=== PATIENT | female | born 1995 | race American Indian/Alaskan Native ===

== ENCOUNTER 2016-12-24 17:02 | Emergency (ER) | payer MEDICAID ==
--- NOTE | 2016-12-24 20:19 | XRay Report ---
FINAL REPORT EXAM: XR ANKLE 3 RT HISTORY: fall/swollen right ankle,ro fx TECHNIQUE: Left ankle three views PRIORS: None. FINDINGS: There is acute traumatic vertical fracture through the medial malleolus with mild superior displacement medial fragment. Joint space does not appear widened. The distal fibula is intact there are no additional acute fractures identified. No radiopaque foreign bodies are seen. Joint spaces are within normal limits. IMPRESSION: Acute fracture the medial malleolus
[2016-12-24] MEDS ORDERED: NORCO 5/325 PO ONE (20:41)
--- NOTE | 2016-12-24 20:55 | Emergency Department Report ---
ED Lower Extremity HPI - General Chief Complaint: Extremity Injury, Lower Stated Complaint: RT ANKLE INJURY Time Seen by Provider: 12/24/16 20:03 Source: patient Mode of arrival: Wheelchair Limitations: No Limitations - History of Present Illness Initial Comments: 21-year-old female past medical history past medical history asthma presents with complaint of right ankle pain status post mechanical fall. Patient states she was chasing after her child to prevent him from running into the street, did not notice a short flight of steps outside her home and took a wide step and inverted her right ankle. Patient states this occurred this afternoon. This was witnessed by bystanders. Patient states she felt a pop in her ankle and could not walk after due to severe pain and swelling. Patient has visible swelling to distal right ankle denies any other injuries denies any loss of consciousness. States she did not hit her head. Patient tried to stand up afterwards but could not due to pain. On exam patient cannot take more than one step due to pain. no lacerations nor abrasions. MD Complaint: ankle injury -: This afternoon Injury: Ankle: Right (pain and swelling right ankle) Type of Injury: inversion Severity: moderate Severity scale (0 -10): 6 Improves With: immobilization Worsens With: weight bearing, movement, palpation Associated Symptoms: snap/pop sensation, swelling, unable to bear weight - Related Data Previous Rx's Medication Instructions Recorded Last Taken Type HYDROcodone/APAP 5-325 [[place] 1 each PO Q6HR PRN #14 tablet 12/24/16 Unknown Rx 5/325] Ibuprofen [Motrin] 800 mg PO Q8HR PRN #25 tablet 12/24/16 Unknown Rx Allergies Allergy/AdvReac Type Severity Reaction Status Date / Time peanut Allergy Anaphylaxis Verified 04/23/15 17:11 shellfish derived Allergy Anaphylaxis Verified 04/23/15 17:11 ED Review of Systems ROS: Stated complaint: RT ANKLE INJURY Other details as noted in HPI Constitutional: denies: chills, fever Eyes: denies: eye pain, eye discharge, vision change ENT: denies: ear pain, throat pain Respiratory: denies: cough, shortness of breath, wheezing Cardiovascular: denies: chest pain, palpitations Endocrine: no symptoms reported Gastrointestinal: denies: abdominal pain, nausea, diarrhea Genitourinary: denies: urgency, dysuria, discharge Musculoskeletal: denies: back pain, joint swelling, arthralgia Skin: denies: rash, lesions Neurological: denies: headache, weakness, paresthesias Psychiatric: denies: anxiety, depression Hematological/Lymphatic: denies: easy bleeding, easy bruising ED Past Medical Hx - Past Medical History Hx Asthma: Yes - Social History Smoking Status: Never Smoker Substance Use Type: None - Medications Home Medications: Home Medications Medication Instructions Recorded Confirmed Last Taken Type HYDROcodone/APAP 5-325 [[place] 1 each PO Q6HR PRN #14 tablet 12/24/16 Unknown Rx 5/325] Ibuprofen [Motrin] 800 mg PO Q8HR PRN #25 tablet 12/24/16 Unknown Rx ED Physical Exam - General Limitations: No Limitations General appearance: alert, in no apparent distress - Head Head exam: Present: atraumatic, normocephalic - Eye Eye exam: Present: normal appearance, PERRL, EOMI - ENT ENT exam: Present: mucous membranes moist - Neck Neck exam: Present: normal inspection - Respiratory Respiratory exam: Present: normal lung sounds bilaterally. Absent: respiratory distress - Cardiovascular Cardiovascular Exam: Present: regular rate, normal rhythm. Absent: systolic murmur, diastolic murmur, rubs, gallop - GI/Abdominal GI/Abdominal exam: Present: soft, normal bowel sounds - Extremities Exam Extremities exam: Present: normal inspection - Expanded Lower Extremity Exam Right Upper Leg exam: Present: normal inspection, full ROM Knee exam: Present: normal inspection, full ROM Lower Leg exam: Present: normal inspection, full ROM Ankle exam: Present: tenderness (there is tenderness worse at the right medial malleolus than lateral malleolus on exam.), swelling Foot/Toe exam: Present: tenderness (tenderness at the top of right ankle), swelling Neuro vascular tendon exam: Present: no vascular compromise (distal dorsalis pedis and posterior tibial pulses intact) Gait: Positive: antalgic 1 - Pain and swelling here 2 - Pain and swelling here - Back Exam Back exam: Present: normal inspection - Neurological Exam Neurological exam: Present: alert, oriented X3, CN II-XII intact, abnormal gait (antalgic gait) - Psychiatric Psychiatric exam: Present: normal affect, normal mood - Skin Skin exam: Present: warm, dry, intact, normal color. Absent: rash ED Course Vital Signs 12/24/16 17:45 Temperature 98.8 F Pulse Rate 80 Respiratory 18 Rate Blood Pressure 117/69 O2 Sat by Pulse 100 Oximetry ED Lower Extremity MDM - Medical Decision Making A/P: Right ankle pain and swelling, right ankle fracture 1-[place] when necessary, Motrin when necessary 2-patient placed in posterior splint. I discussed the case directly with Dr. Arrieta orthopedic on-call surgeon, patient to see Dr. Arrieta on Tuesday morning as per Dr. Arrieta and to be placed in a posterior ankle splint until he can evaluate her. No neurovascular compromise of foot on clinical exam, distal DT and Dp pulses intact. 3-crutches; nonweightbearing for now 4- RICE therapy Critical care attestation.: If time is entered above; I have spent that time in minutes in the direct care of this critically ill patient, excluding procedure time. ED Disposition Clinical Impression: Ankle fracture, right Qualifiers: Encounter type: initial encounter Fracture type: closed Qualified Code(s): S82.891A - Other fracture of right lower leg, initial encounter for closed fracture Disposition: - TO HOME OR SELFCARE Is pt being admited?: No Does the pt Need Aspirin: No Condition: Stable Instructions: Ankle Fracture (ED), Splint Care (ED), Crutch Instructions (ED) Prescriptions: HYDROcodone/APAP 5-325 [[place] 5/325] 1 each PO Q6HR PRN #14 tablet PRN Reason: Pain Ibuprofen [Motrin] 800 mg PO Q8HR PRN #25 tablet PRN Reason: Pain Referrals: OMAR ARRIETA MD [Staff Physician] - 3-5 Days Forms: Accompanied Note, Work/School Release Form(ED) Time of Disposition: 21:01
[2016-12-24 21:25] VITALS: BP 122/80
== END 2016-12-24 21:26 | disposition home or self-care (01) ==
LOC: ED 17:02
DX: S82.891A Other fracture of right lower leg, initial encounter for closed fracture (principal); J45.909 Unspecified asthma, uncomplicated; Z91.013 Allergy to seafood; Z91.010 Allergy to peanuts; W19.XXXA Unspecified fall, initial encounter; Y93.89 Activity, other specified; Y99.9 Unspecified external cause status; Y92.89 Other specified places as the place of occurrence of the external cause